=== PATIENT | male | born 1935 | race African-American/Black ===

== ENCOUNTER 2018-06-29 14:00 | Outpatient (RCR) | payer OTHER ==
[~2018-06-29 14:00] MED LIST: DOXYCYCLINE 10100 MG PO; HCTZ12.5TAB PO; POTASSIUM75 MG PO; PREDNISONE10 MG PO; PROVENTIL0.09 MG/A1 IH; [UNRECOGNIZED DRUG - REMARK]
== END 2018-07-20 | disposition home or self-care (01) ==
LOC: WSPT
DX: Z47.1 Aftercare following joint replacement surgery (principal); Z96.641 Presence of right artificial hip joint
CPT/HCPCS: G0283-GP; G8978-GP

== ENCOUNTER 2018-09-12 11:58 | Emergency (ER) | payer OTHER ==
[~2018-09-12] VITALS: Ht 182.9 cm; Wt 95.5 kg
[2018-09-12 12:05] VITALS: TEMP 97.4
[2018-09-12] MEDS ORDERED: ZYRTEC ALLERGY10 MG PO (12:23)
[2018-09-12 12:24] LABS: BASO % 0.2 % (0.0-2.0); EOS # 0.1 (0.0-0.7); EOS % 1.1 % (0-4.0); GRAN # 3.4 (1.4-6.5); GRAN % 62.8 % (42.2-75.2); HEMOGLOBIN 15.6 g/dl (13.5-18.0); LYMPH # 1.4 (1.2-3.4); LYMPH % 26.9 % (20.0-51.0); MEAN CELL VOLUME 96 fl (80.0-100.0); MEAN CORPUSCULAR HEMOGLOBIN 32 pg (27.0-31.0); MEAN CORPUSCULAR HGB CONC 33 g/dl (33.0-37.0); MEAN PLATELET VOLUME 9.2 fl (7.4-10.4); MONO # 0.5 (0.1-0.6); MONO % 8.8 % (1.7-9.3); PLATELET COUNT 241 K/mm3 (130-400); RED BLOOD COUNT 4.92 M/mm3 (4.20-5.60); REDCELL DISTRIBUTION WIDTH-CV 14.2 % (11.5-14.5)
[2018-09-12] MEDS ORDERED: PRILOSEC 20MG20 MG PO (12:24)
[2018-09-12] MEDS ORDERED: CARDIZEM CD 24240 MG PO (12:24)
[2018-09-12] MEDS ORDERED: K-DUR20 MEQ PO (12:25)
[2018-09-12 12:26] LABS: PROTHROMBIN TIME 11.1 SECONDS (9.7-12.8)
[2018-09-12 12:31] LABS: ALANINE AMINOTRANSFERASE 35 U/L (21-72); ALBUMIN 4.4 gm/dL (3.5-5.0); ALKALINE PHOSPHATASE 62 U/L (50-136); ANION GAP 7 mmol/L (7-16); AST,SGOT 48 U/L (15-37); BILIRUBIN,TOTAL 0.6 mg/dL (0.0-1.0); BLOOD UREA NITROGEN 22 mg/dL (9-20); CALCIUM 9.6 mg/dL (8.4-10.2); CARBON DIOXIDE 31 mmol/L (22-30); CHLORIDE 101 mmol/L (98-107); CREATININE, serum 1.41 (0.66-1.25); GLUCOSE 91 mg/dL (74-106); POTASSIUM 4.2 mmol/L (3.4-5.0); SODIUM 139 mmol/L (137-145)
[2018-09-12 12:43] LABS: TROPONIN-I < 0.012 ng/mL (0.000-0.035)
[2018-09-12 17:50] VITALS: BP 151/94; PULSE 64
== END 2018-09-12 17:50 | disposition home or self-care (01) ==
LOC: COL.ER 11:58
PROVIDERS: Emergency Medicine
DX: R07.89 Other chest pain (principal); I10 Essential (primary) hypertension
CPT/HCPCS: J2270; J7030; Q9967

== ENCOUNTER 2019-02-09 11:56 | Emergency (ER) | payer OTHER ==
[~2019-02-09] VITALS: Ht 182.9 cm; Wt 95.5 kg
[~2019-02-09 11:56] MED LIST changes: +CARDIZEM CD 24240 MG PO; +K-DUR20 MEQ PO; +PRILOSEC 20MG20 MG PO; +ZYRTEC ALLERGY10 MG PO
[2019-02-09 12:01] VITALS: TEMP 97.9
[2019-02-09] MEDS ORDERED: ASPIRIN 81M81 MG/TA2 PO (12:21)
[2019-02-09] MEDS ORDERED: MEDROL 4MG DOSPA4 MG PO (13:53)
[2019-02-09] MEDS ORDERED: FLEXERIL5 MG PO (13:53)
[2019-02-09] MEDS ORDERED: NORCO 325 MG-51 TAB PO (13:53)
[2019-02-09 14:26] VITALS: BP 153/93; PULSE 69
== END 2019-02-09 14:22 | disposition home or self-care (01) ==
LOC: COL.ER 11:56
DX: M54.5 Low back pain (principal); G89.29 Other chronic pain; Z79.82 Long term (current) use of aspirin

== ENCOUNTER 2020-11-02 12:05 | Inpatient (IN) | payer OTHER ==
[~2020-11-02] VITALS: Ht 182.9 cm; Wt 98.7 kg
[~2020-11-02 12:05] MED LIST changes: +ASPIRIN 81M81 MG/TA2 PO; +FLEXERIL5 MG PO; +MEDROL 4MG DOSPA4 MG PO; +NORCO 325 MG-51 TAB PO
[2020-12-11] VITALS (12 sets, daily range): BP systolic 123–144; BP diastolic 68–91; PULSE 67–84; TEMP 97.4–98.4
[2020-12-11] MEDS ORDERED: PROVENTIL0.09 MG/A1 IH (06:42)
[2020-12-11] MEDS ORDERED: VITAMIN D31000 I1 PO (06:46)
[2020-12-11] MEDS ORDERED: SENEXON-S 50-81 EACH PO (06:51)
[2020-12-11] MEDS ORDERED: TYLENOL 500MG500 MG PO (06:57)
[2020-12-11] MEDS ORDERED: REFRESH TEARS 330 ML OP (07:00)
[2020-12-11] MEDS ORDERED: VOLTAREN GEL 1%1 TU TP (07:02)
[2020-12-11] MEDS ORDERED: ZETIA 10MG TAB10 MG PO (07:03)
[2020-12-11] MEDS ORDERED: FLONASEALLERGY NS (07:05)
[2020-12-11] MEDS ORDERED: MELATIN 3 MG-11 TAB PO (07:06)
[2020-12-11] MEDS ORDERED: CRESTOR5 MG PO (07:08)
--- NOTE | 2020-12-11 07:08 | NUR ---
PATIENT DID NOT BRING LIST OF MEDICATIONS. PATIENT A POOR HISTORIAN OF HIS MEDICATIONS. [facility]. PATIENT STATED HE HAD NOT TAKEN ANY MEDICATIONS TODAY OR YESTERDAY. STATED HE TOOK HIS MEDICATIONS THE DAY BEFORE YESTERDAY ABOUT MID MORNING.
--- NOTE | 2020-12-11 07:14 | NUR ---
DR MANN AND SELINA WET MIX OPERATOR TO SEE PATIENT AND SON PRIOR TO PATIENT GOING TO OR.
--- NOTE | 2020-12-11 11:46 | NUR ---
Patient is lying in bed, alert and oriented x 3, vital signs stable, no pain, nausea or vomiting. Left knee dry and clean with yojana wrapping. Son is in room with patient. No further needs at the moment. Call light within reach.
--- NOTE | 2020-12-11 14:16 | NUR ---
AGREE WITH BETTY BRODERICK
--- NOTE | 2020-12-11 14:50 | NUR ---
Patient resting. Vitals stable on 2L. Starting to get sensation returning to right leg. Unable to wiggle toes to Left left yet. Pulses +2. Denies pain. Left leg elevated & ices. Dressing CDI. Tolerated lunch without nausea. Ivf per orders to [facility]. Will continue to [facility].
--- NOTE | 2020-12-11 15:45 | NUR ---
Patient sleeping soundly
--- NOTE | 2020-12-11 18:00 | NUR ---
Patient is in bed, awake and oriented, vital signs stable, no pain at the moment. Getting Tylenol as scheduled. No nausea or vomiting. Tolerating food. Patient can move lower extremities and recovering sensation. No further needs at the moment. Call ligth within reach.
--- NOTE | 2020-12-11 21:19 | NUR ---
PT RATES PAIN TO LEFT KNEE 11/23. SCHEDULED HS MEDS GIVEN WELL DOSE OF OXYCODONE 5MG PO FOR LEFT LEG PAIN.
[2020-12-12] VITALS (7 sets, daily range): BP systolic 110–155; BP diastolic 61–88; PULSE 77–84; TEMP 97.6–98.4
--- NOTE | 2020-12-12 00:03 | NUR ---
PT NOT SLEEPING. MEDICATED WITH SCHEDULED TYLENOL AND MELATONIN.
--- NOTE | 2020-12-12 04:03 | NUR ---
PT AWAKE, REPORTS PAIN TO LEFT KNEE. MEDICATED WITH OXYCODONE 10MG PO AT THIS TIME.
--- NOTE | 2020-12-12 10:01 | NUR ---
Initial visit; Patient thanked Inventory Control Planner for looking in on him and offering prayer and God's blessings. Patient was receptive to Inventory Control Planner keeping him in her prayers.
--- NOTE | 2020-12-12 10:40 | NUR ---
Patient alert and oriented, answers questions appropriately. See assessment. LLE knee with dressing CDI. Pulses palpable to BLE. TTWB to LLE. KYLE hose and SCDs in place. Post op exercises reviewed with patient. No c/o at this time.
[2020-12-12 12:26] LABS: HEMATOCRIT 36.1 % (42.0-52.0); HEMOGLOBIN 12.1 g/dl (13.5-18.0)
--- NOTE | 2020-12-12 13:54 | NUR ---
HUONG met with the patient to discuss discharge plan. The patient lives alone in [place]. He states that his son, Bridget (ph#[phone]), also lives in [place]. He reports needing some assistance with ADLs, but that he has been managing on his own at home. He denies having home health services. He has a cane and rollator. The patient's PCP is Dr. Hurtado at the [facility] and [facility] [place] [facility] [place]. The patient does not have a DPOA-HC, but he was interested in obtaining a form. HUONG provided. The patient states that he is and has five children: Carrie Gill (ph#[phone]), Lance, Remington, and Marion. The patient had a left total knee. The patient reports that he plans on going to a SNF upon discharge. HUONG informed him of the different facilities. The patient preferred 1) [facility] 2) [facility]. The patient reports that the [facility] should be covering this hospital stay and that he would want them to pay for SNF. The patient has Medicare and for Life listed as his insurance. HUONG informed the patient of this and informed him how his Medicare and would also cover for SNF. The patient verbalized understanding. He states that he thought the VA was going to cover the stay. HUONG notified Mike with admissions. Mike reports that he will reach out to the [facility] to see if they will authorize the patient's stay here. HUONG contacted and faxed a referral to Bhpuinder at [facility]. HUONG informed him about the insurance. Bhupinder reports that they can accept the patient pending the VA vs Medicare decision. HUONG to update the patient. HUONG consulted [facility] Director, Nadira. HUONG attempted to contact the [facility] to discuss SNF and if the VA would do a contract for SNF. HUONG left the RN a voicemail.
--- NOTE | 2020-12-12 15:15 | NUR ---
Discharge instructions reviewed with patient, verbalized understanding. Discahrged via wheelchair to auto/home with family at 1345.
--- NOTE | 2020-12-12 21:11 | NUR ---
PT IN BED. TAKES HS MEDS INCLUDING NORCO 7.5MG 2 TABS FOR LEFT KNEE PAIN. IS ALERT AND ORIENTED X4. HAS SL TO RIGHT AC, FLUSHES WELL. DRSG D/I TO LEFT KNEE.
[2020-12-13 03:50] VITALS: BP 129/69; PULSE 81; TEMP 98.7
--- NOTE | 2020-12-13 04:00 | NUR ---
PT DENIES NEEDS AT THIS TIME.
--- NOTE | 2020-12-13 06:00 | NUR ---
PT MEDICATED WITH NORCO 7.5MG 1 TAB FOR LEFT KNEE PAIN.
[2020-12-13 07:28] VITALS: BP 135/60; PULSE 80; TEMP 98.6
--- NOTE | 2020-12-13 10:01 | NUR ---
Patient alert and oriented, answers questions appropriately. See assessment. LLE with aquacel CDI. Pulses palpable to LLE, no numbness or tingling noted. TTWB to LLE. 1+ edema noted to LLE. Post op exercises reviewed with patient. No c/o at this time.
[2020-12-13 11:23] VITALS: BP 132/73; PULSE 81; TEMP 98.5
--- NOTE | 2020-12-13 14:59 | NUR ---
The patient is to tentatively d/c tomorrow, 12/14. Kristin, a social work nurse, with the [facility] contacted HUONG. HUONG updated Kristin on how the patient would like to pursue SNF at [facility] and utilize the VA. Kristin reports that they would have to get a contract with [facility] and that it can take awhile to get. She requested the patient's records. HUONG faxed the patient's records to Kristin. HUONG contacted and updated Bhupinder at [facility]. Bhupinder reports that they cannot take the patient into their facility until they have the contract in their hands from the [place]. He reports they they can utilize and bill the patient's Medicare and for Life if he in agreement to that. HUONG met with the patient and updated him on the above and explained the contract with the [facility] for a SNF or using his Medicare and for Life. The patient was agreeable to go ahead and use his Medicare and for Life for the SNF stay. HUONG notified Bhupinder at [facility] and faxed him updates. HUONG contacted and updated the patient's son, Bridget, on the above. Bridget is in agreement to the plan. *Discharge plan: [facility] SNF*
[2020-12-13 15:00] VITALS: BP 129/68; PULSE 78; TEMP 97.6
[2020-12-13 20:00] VITALS: BP 155/73; PULSE 84; TEMP 98.3
--- NOTE | 2020-12-13 20:30 | NUR ---
Pt. laying in bed at this time. Pt. is A&OX3, assessment complete. INT to rt. ac patent. Dressing to Lt. knee CDI. Pt. reports pain at an 8 on pain scale after ambulating. Gave pain meds per orders. Pt. denies further needs, call light within reach.
[2020-12-13 23:40] VITALS: BP 104/74; PULSE 79; TEMP 98.6
[2020-12-14 03:26] VITALS: BP 115/54; PULSE 75; TEMP 98.7
[2020-12-14] MEDS ORDERED: ASPI325T6 PO (07:10)
[2020-12-14] MEDS ORDERED: ROXICODONE 55 MG/TAB PO (07:10)
[2020-12-14] MEDS ORDERED: ULTRAM 50MG TAB50 MG PO (07:11)
[2020-12-14 07:46] VITALS: BP 137/71; PULSE 82; TEMP 98.7
--- NOTE | 2020-12-14 10:24 | NUR ---
Kristin, [place] social work program coordinator, contacted HUONG and reports that [facility] should be receiving the contract this morning. HUONG notified Bhupinder at [facility]. Bhupinder reports that they have received the contract and are able to accept the patient today. HUONG updated the patient and his son about the [facility] contract. The patient would like to pursue with the contract. The patient is to discharge today, 12/14, to [facility] for a skilled stay. Transportation was scheduled around 1300, via [facility]. HUONG informed the patient, his RN, and son (Bridget) of the time. They were all agreeable to the time. No additional needs at this time.
--- NOTE | 2020-12-14 10:58 | NUR ---
Patient alert and oriented, answers questions appropriately. See assessment. LLE with Aquacel CDI. BLE pulses palpable. TTWB LLE. Post op exercises reviewed with patient. No c/o at this time.
[2020-12-14 11:30] VITALS: BP 147/61; PULSE 93; TEMP 98.6
[2020-12-14 12:41] VITALS: BP 147/61; PULSE 93; TEMP 98.6
--- NOTE | 2020-12-14 16:15 | NUR ---
Patient transferred to [facility] via wheelchair with transportation staff at 1515. Paperwork sent, report called.
== END 2020-12-14 15:15 | DRG 470 ==
LOC: SURG 12-11 05:22 → INPTSU 12-11 05:22 → SURG 12-11 07:30
PROVIDERS: ADMIT Orthopaedic Surgery
PROC: 0SRD0J9 Replacement of Left Knee Joint with Synthetic Substitute, Cemented, Open Approach (ICD-10-PCS; principal; 2020-12-11 07:30)
DX: M17.12 Unilateral primary osteoarthritis, left knee (principal); Z96.641 Presence of right artificial hip joint; I25.10 Atherosclerotic heart disease of native coronary artery without angina pectoris; E78.5 Hyperlipidemia, unspecified; I10 Essential (primary) hypertension; K21.9 Gastro-esophageal reflux disease without esophagitis; J44.9 Chronic obstructive pulmonary disease, unspecified; Z87.891 Personal history of nicotine dependence; Z90.79 Acquired absence of other genital organ(s); Z85.46 Personal history of malignant neoplasm of prostate; Z20.828 Contact with and (suspected) exposure to other viral communicable diseases
CPT/HCPCS: A9284; C1713; C1776; J0690; J1100; J2250; J2405; J2704; J3010; J7030; J7120

== ENCOUNTER → 2020-12-25 | Outpatient (CLI) | payer MEDICARE, OTHER ==
[~2020-12-25] MED LIST changes: +ASPI325T6 PO; +CRESTOR5 MG PO; +FLONASEALLERGY NS; +LIDODERM 5% PATC1 EA TP; +MELATIN 3 MG-11 TAB PO; +REFRESH TEARS 330 ML OP; +ROXICODONE 55 MG/TAB PO; +SENEXON-S 50-81 EACH PO; +TYLENOL 500MG500 MG PO; +ULTRAM 50MG TAB50 MG PO; +VITAMIN D31000 I1 PO; +VOLTAREN GEL 1%1 TU TP; +ZETIA 10MG TAB10 MG PO
== END ==
LOC: ZLAB.STJ 10:52
DX: Z20.822 Contact with and (suspected) exposure to COVID-19 (principal)

== ENCOUNTER 2021-02-04 13:14 | Emergency (ER) | payer MEDICARE, OTHER ==
[~2021-02-04] VITALS: Ht 182.9 cm; Wt 96.4 kg
[~2021-02-04 13:14] MED LIST changes: -LIDODERM 5% PATC1 EA TP
[2021-02-04] MEDS ORDERED: LIDODERM 5% PATC1 EA TP (14:17)
[2021-02-04 14:48] VITALS: BP 134/64; PULSE 82; TEMP 98.7
== END 2021-02-04 14:30 | disposition home or self-care (01) ==
LOC: COL.ER 13:14
DX: M25.551 Pain in right hip (principal); Z96.641 Presence of right artificial hip joint